=== PATIENT | female | born 1995 | race Caucasian/White ===

== ENCOUNTER 2016-12-02 23:52 | Emergency (ER) | payer BC ==
[2016-12-02 23:54] VITALS: TEMP 97.7
[2016-12-03 00:21] LABS: BASO # 0.1 (0.0-0.2); BASO % 0.6 % (0.0-2.0); EOS # 0.2 (0.0-0.7); EOS % 1.9 % (0-4.0); GRAN # 4.5 (1.4-6.5); GRAN % 50.9 % (42.2-75.2); HEMATOCRIT 40.1 % (35.0-45.0); HEMOGLOBIN 13.6 g/dl (12.0-15.0); LYMPH # 3.7 (1.2-3.4); LYMPH % 41.7 % (20.0-51.0); MEAN CELL VOLUME 91 fl (80.0-95.0); MEAN CORPUSCULAR HEMOGLOBIN 31 pg (26.0-32.0); MEAN CORPUSCULAR HGB CONC 34 g/dl (33.0-37.0); MEAN PLATELET VOLUME 8.5 fl (7.4-10.4); MONO # 0.4 (0.1-0.6); MONO % 4.6 % (1.7-9.3); PLATELET COUNT 211 K/mm3 (130-400); RED BLOOD COUNT 4.43 M/mm3 (4.10-5.30); REDCELL DISTRIBUTION WIDTH-CV 12.1 % (11.5-14.5)
[2016-12-03 00:28] LABS: ALBUMIN 4.9 gm/dL (3.5-5.0); BILIRUBIN,TOTAL 0.7 mg/dL (0.0-1.0); CALCIUM 9.4 mg/dL (8.4-10.2); CREATININE, serum 0.94 mg/dL (0.52-1.25); POTASSIUM 3.4 mmol/L (3.4-5.0); TOTAL PROTEIN 8.3 gm/dL (6.4-8.2)
[2016-12-03 07:10] VITALS: BP 119/72; PULSE 104
== END 2016-12-03 07:10 | disposition home or self-care (01) ==
LOC: COL.ER 23:52
PROVIDERS: Emergency Medicine
DX: F10.129 Alcohol abuse with intoxication, unspecified (principal)
CPT/HCPCS: J2405; J7030

== ENCOUNTER 2017-07-01 01:56 | Emergency (ER) | payer BC ==
[2017-07-01 02:05] VITALS: TEMP 96.2
[2017-07-01 06:03] VITALS: BP 102/75; PULSE 111
== END 2017-07-01 06:00 | disposition home or self-care (01) ==
LOC: COL.ER 01:56
DX: F10.129 Alcohol abuse with intoxication, unspecified (principal); Y90.8 Blood alcohol level of 240 mg/100 ml or more
CPT/HCPCS: J2405; J7030